=== PATIENT | male | born 1970 | race Caucasian/White ===

== ENCOUNTER 2017-05-19 20:55 | Emergency (ER) | payer OTHER ==
--- NOTE | 2017-05-19 21:12 | PDOC ---
History of Present Illness - General History Source: Patient Exam Limitations: No Limitations - History of Present Illness Initial Comments: 05/19/17 21:35 The patient is a 41 year old male, with significant past medical history of morbid obesity and IDDM, who presents to the emergency room with a sunburn on his upper arms bilaterally, nose, and back. The patient returned from a week- long vacation to [place]. He states that he used sunscreen regularly. He has been using aloe, noxema, and silvadene on the salas with mild relief. He denies fever, chills. PAST MEDICAL HISTORY: Morbidly obese, IDDM PAST SURGICAL HISTORY: no significant history FAMILY HISTORY: no pertinent history SOCIAL HISTORY: Pt lives with family and is employed. MEDICATIONS: reviewed ALLERGIES: As per nursing notes Review of systems General: No fevers or chills, no weakness, no weight loss HEENT: No change in vision. No sore throat, No ear pain CardioVascular: No chest pain or shortness of breath Respiratory:No cough, or wheezing. Gastrointestinal: no nausea, vomiting, diarrhea or constipation, No rectal bleeding Genitourinary: No dysuria, hematuria, or frequency Musculoskeletal: No joint or muscle pain or swelling Neurologic: No headache, vertigo, dizziness or loss of consciousness Psychiatric: nor depression Skin: +sunburn on the nose, upper arms bilaterally, and back. Endocrine: no increased thirst or abnormal weight change Allergic: no skin or latex allergy All other systems reviewed and normal Physical Exam GENERAL: The patient is awake, alert, and fully oriented, in no acute distress. Morbidly obese. HEAD: Normal with no signs of trauma. EYES: Pupils equal, round and reactive to light, extraocular movements intact, sclera anicteric, conjunctiva clear. EXTREMITIES: Normal range of motion, no edema. NEUROLOGICAL: Normal speech, normal gait. PSYCH: Normal mood, normal affect. SKIN: 1st degree sunburn to the shoulders and back with small areas of blistering and some peeling of the skin. It appears that the patient had a small area of 2nd degree sunburn on the nose that already blistered with scabbing formed. There is no evidence of secondary bacterial infection at this time. <Stormy Up - Last Filed: 05/19/17 21:35> - General History Source: Patient Exam Limitations: No Limitations - History of Present Illness Initial Comments: 05/19/17 21:58 A portion of this note was documented by scribe services under my direction. I have reviewed the details of the note, within reason, and agree with the documentation. The case summary and management plan written by me. Assessment and plan: This is a 46-year-old male who comes in complaining of a sunburn. [place] with a sunburn with some mild areas of blistering. There is no evidence of a secondary infection. Patient is otherwise without complaints. Patient given Silvadene and told to follow-up with his primary care doctor <David Escoto I - Last Filed: 05/19/17 21:58> - General Stated Complaint: SUNBURN Time Seen by Provider: 05/19/17 21:03 Past History <Stormy Up - Last Filed: 05/19/17 21:35> - Past Medical History Anemia: No Asthma: No Cancer: No Cardiac Disorders: No CVA: No COPD: No CHF: No Dementia: No Diabetes: Yes GI Disorders: No Disorders: No HTN: Yes Hypercholesterolemia: No Liver Disease: No Seizures: No Thyroid Disease: No - Immunization History Td Vaccination: Yes Immunization Up to Date: No - Psycho/Social/Smoking Cessation Hx Anxiety: No Suicidal Ideation: No Smoking Status: Yes Smoking History: Never smoked Have you smoked in the past 12 months: No Number of Cigarettes Smoked Daily: 0 Hx Alcohol Use: Yes ("ONCE EVERY 2 MONTHS") Drug/Substance Use Hx: No Substance Use Type: None Hx Substance Use Treatment: No <David Escoto I - Last Filed: 05/19/17 21:58> - Past Medical History Allergies/Adverse Reactions: Allergies Allergy/AdvReac Type Severity Reaction Status Date / Time No Known Allergies Allergy Verified 12/03/14 18:24 Home Medications: Ambulatory Orders Cholecalciferol (Vitamin D3) [Vitamin D3] 1,000 unit PO DAILY 12/03/14 Indomethacin 25 mg PO BID PRN 12/03/14 Sitagliptin Phos/Metformin HCl [Janumet 50-1,000 mg Tablet] 1 tab PO BID Atorvastatin Ca [Lipitor] 10 mg PO HS #30 tablet 12/11/14 Oxycodone HCl/Acetaminophen [Percocet 5-325 mg Tablet] 1 combo PO Q4H PRN #60 tablet 12/11/14 Insulin (Levemir) [Levemir Flexpen -] 24 units SQ DAILY 05/19/17 Silver Sulfadiazine [Silvadene] 400 gm TP DAILY #1 cream..g. 05/19/17 *Physical Exam - Vital Signs Last Vital Signs Temp Pulse Resp BP Pulse Ox 98.6 F 93 H 15 149/90 99 05/19/17 20:57 05/19/17 20:57 05/19/17 20:57 05/19/17 20:57 05/19/17 20:57 <Stormy Up - Last Filed: 05/19/17 21:35> *DC/Admit/Observation/Transfer - Attestations Scribe Attestion: 05/19/17 21:36 Documentation prepared by HARRISON Gallegos, acting as medical physics professor for David Escoto MD. <Stormy Up - Last Filed: 05/19/17 21:35> - Discharge Dispostion Admit: No <David Escoto I - Last Filed: 05/19/17 21:58> Diagnosis at time of Disposition: Sunburn, blistering - Discharge Dispostion Disposition: HOME Condition at time of disposition: Good - Prescriptions Prescriptions: Silver Sulfadiazine [Silvadene] 400 gm TP DAILY #1 cream..g. - Referrals Referrals: Lesa Shaikh MD [Primary Care Provider] - - Patient Instructions Printed Discharge Instructions: How to Avoid Sunburn, DI for Sunburn Additional Instructions: Y Silvadene cream to your arm once a day until the skin has done peeling and the blisters have resolved. In addition to that you can also use aloe to the area. Return to the emergency department immediately with ANY new, persistent or worsening symptoms. Continue any medications as previously prescribed by your physician. You should follow up with your primary doctor as soon as possible regarding today's emergency department visit. . Please make sure your doctor reviews the results of your emergency evaluation. Thank you for coming to the Emergency Department today for your care. It was a pleasure to see you today. Please note that your evaluation is INCOMPLETE until you follow-up with your doctor.
[2017-05-19 21:21] VITALS: BP 149/90; PULSE 93; TEMP 98.6; BMI 55.3
== END 2017-05-19 21:35 | disposition home or self-care (01) ==
LOC: FER 20:55
PROC: 2W21X4Z Dressing of Face using Bandage (ICD-10-PCS; principal; 2017-05-19)
PROC: 2W2BX4Z Dressing of Left Upper Arm using Bandage (ICD-10-PCS; 2017-05-19)
DX: L55.9 Sunburn, unspecified (principal); E66.01 Morbid (severe) obesity due to excess calories; E11.9 Type 2 diabetes mellitus without complications; I10 Essential (primary) hypertension
CPT/HCPCS: 99281-25

== ENCOUNTER 2021-05-07 09:37 | Emergency (ER) | payer OTHER ==
[2021-05-07 10:32] VITALS: TEMP 98.1; BMI 27.5
[2021-05-07] MEDS ORDERED: CASIRIVIMAB/IMDEVIMAB 10 ML in SODIUM CHLORIDE 100 ML IVPB ONE (11:29)
[2021-05-07 14:41] LABS: HEMATOCRIT 35.4 % (35.4-49); HEMOGLOBIN 12.1 GM/dL (11.7-16.9); MCH 31.4 pg (25.7-33.7); MCHC 34.1 g/dl (32.0-35.9); MEAN PLT VOLUME 10.8 fl (7.5-11.1); PLATELET COUNT 197 10^3/uL (134-434); RBC 3.85 M/mm3 (4.00-5.60); RDW 14.2 % (11.9-15.9); WHITE BLOOD COUNT 6.2 K/mm3 (4.0-10.0)
[2021-05-07 15:01] VITALS: BP 108/76; PULSE 69
[2021-05-07 15:10] LABS: CALCIUM 8.7 mg/dL (8.5-10.1)
[2021-05-07 15:11] LABS: BLOOD UREA NITROGEN 23.6 mg/dL (7-18)
== END 2021-05-07 14:55 | disposition home or self-care (01) ==
LOC: JCOVINFU 09:37 → JER 09:37 → JCOVINFU 14:55
DX: U07.1 COVID-19 (principal)
CPT/HCPCS: 36415; 80048; 85027; 99284-25; M0240; Q0240

== ENCOUNTER 2021-11-26 18:14 | Emergency (ER) | payer OTHER ==
[2021-11-26 18:28] VITALS: BP 157/92; PULSE 78; TEMP 99.5; BMI 29.4
[2021-11-26] MEDS ORDERED: VANCOMYCIN 1 GM in D5W (PRE-DOCKED) 1,000 MG/250 ML IVPB ONE (19:13)
[2021-11-26] MEDS ORDERED: PIPERACILLIN/TAZOB 3.375 GM 3.375 GM in DEXTROSE 5%-WATER - 50 ML IVPB ONE (19:13)
[2021-11-26] MEDS ORDERED: PIPERACILLIN/TAZOBACTAM 3.375 GM VIAL IVPB ONE (19:32)
[2021-11-26] MEDS ORDERED: VANCOMYCIN 1,000 MG VIAL (RESTRICTED TO ID ONLY) ONE (19:33)
[2021-11-26] MEDS ORDERED: morphine CARPU-JECT 4 MG/1 ML DISP.SYRIN IVPUSH ONE (20:24)
[2021-11-26 20:29] LABS: BILIRUBIN,TOTAL 0.5 mg/dl (0.2-1); CALCIUM 8.8 mg/dl (8.5-10); CREATININE 1.1 mg/dl (0.55-1.3)
[2021-11-26] MEDS ORDERED: morphine SULFATE 4 MG/ML VIAL ONE (20:29)
[2021-11-26 21:15] LABS: BASO % 0.6 % (0-2.0); EOS % 1.6 % (0-4.5); HEMATOCRIT 32.5 % (35.4-49); LYMPH % 23.6 % (8-40); MCH 30.9 pg (25.7-33.7); MCHC 33.9 g/dl (32.0-35.9); MEAN CELL VOLUME 91.3 fl (80-96); MEAN PLT VOLUME 9.2 fl (7.5-11.1); MONO % 5.5 % (3.8-10.2); NEUT % 68.7 % (42.8-82.8); PLATELET COUNT 195 10^3/uL (134-434); RBC 3.57 M/mm3 (4.00-5.60); RDW 13.1 % (11.9-15.9); WHITE BLOOD COUNT 7.7 K/mm3 (4.0-10.0)
== END 2021-11-26 23:43 | disposition home or self-care (01) ==
LOC: FER 18:14
PROC: 3E033GC Introduction of Other Therapeutic Substance into Peripheral Vein, Percutaneous Approach (ICD-10-PCS; principal; 2021-11-26)
DX: J34.0 Abscess, furuncle and carbuncle of nose (principal)
CPT/HCPCS: 36415; 70487-TC; 80053; 85025; 87040; 96365; 96375; 99285-25; Q9967

== ENCOUNTER 2023-01-16 18:30 | Emergency (ER) | payer OTHER ==
[2023-01-16 18:45] VITALS: BP 117/82; PULSE 81; RESP 16; TEMP 97.8; BMI 28.1
[2023-01-16] MEDS ORDERED: LIDOCAINE 5% TOPICAL PATCH TP ONE (19:48)
[2023-01-16] MEDS ORDERED: METHOCARBAMOL 500 MG TABLET PO ONE (19:48)
[2023-01-16] MEDS ORDERED: METHOCARBAMOL 500 MG TABLET ONE (19:49)
[2023-01-16] MEDS ORDERED: LACTULOSE 20 GM/30 ML UDC (FOR ORAL USE ONLY) PO ONE (20:50)
[2023-01-16] MEDS ORDERED: LACTULOSE 20 GM/30 ML UDC (FOR ORAL USE ONLY) ONE (20:51)
[2023-01-16] MEDS ORDERED: POLYETHYLENE GLYCOL (HEALTHYLAX) 3350 17 GM PACKET PO SCH (21:00)
[2023-01-16] MEDS ORDERED: LIDOCAINE PATCH REMOVAL MC SCH (22:00)
[2023-01-17] MEDS ORDERED: ACETAMINOPHEN 1000 MG/100 ML BAG IVPB ONE (03:04)
[2023-01-17] MEDS ORDERED: SODIUM CHLORIDE 0.9% 500 ML INFUS.BAG IV ONE (03:05)
== END 2023-01-16 20:55 | disposition home or self-care (01) ==
LOC: FER 18:30
PROC: 3E033NZ Introduction of Analgesics, Hypnotics, Sedatives into Peripheral Vein, Percutaneous Approach (ICD-10-PCS; principal; 2023-01-16)
DX: S00.83XA Contusion of other part of head, initial encounter (principal); S46.911A Strain of unspecified muscle, fascia and tendon at shoulder and upper arm level, right arm, initial encounter; S39.012A Strain of muscle, fascia and tendon of lower back, initial encounter; W10.8XXA Fall (on) (from) other stairs and steps, initial encounter
CPT/HCPCS: 70450-TC; 70480-TC; 72070-TC-FY; 72100-TC-FY; 73030-TC-RT-FY; 99285-25

== ENCOUNTER 2023-11-25 20:40 | Day surgery (SDC) | payer OTHER ==
[2023-11-25] MEDS ORDERED: FAMOTIDINE 20 MG/50 ML IVPB 20 MG/50 ML MG IVPB ONE (21:12)
[2023-11-25] MEDS ORDERED: ACETAMINOPHEN INJECTION 100 ML IVPB ONE (21:12)
[2023-11-25] MEDS: SODIUM CHLORIDE 1,000 ML IV STA ×2 (21:24→22:44)
[2023-11-25] MEDS: ACETAMINOPHEN 1000 MG/100 ML BAG IVPB ONE (21:25)
[2023-11-25] MEDS: FAMOTIDINE 20 MG/50 ML IVPB 20 MG/50 ML MG IVPB ONE (21:25)
[2023-11-25 21:29] LABS: HEMATOCRIT 33.4 % (35.4-49); HEMOGLOBIN 10.7 G/dL (11.7-16.9); MCH 29.8 pg (25.7-33.7); MCHC 31.9 g/dl (32.0-35.9); MEAN CELL VOLUME 93.6 fl (80-96); MEAN PLT VOLUME 9.5 fl (7.5-11.1); RBC 3.57 10^6/uL (4.00-5.60); RDW 14.7 % (11.9-15.9); WHITE BLOOD COUNT 7.9 10^3/uL (4.0-10.8)
[2023-11-25 21:38] LABS: PLATELET ESTIMATE ADEQUATE
[2023-11-25 21:50] LABS: ALBUMIN 3.3 g/dl (3.4-5.0); BILIRUBIN,TOTAL 0.3 mg/dl (0.2-1); CALCIUM 8.8 mg/dl (8.5-10.1); CREATININE 1.4 mg/dl (0.6-1.3); POTASSIUM 4.4 mmol/L (3.5-5.1); TOT PROT 6.6 g/dl (6.4-8.2)
[2023-11-25] MEDS ORDERED: KETOROLAC TROMETHAMINE 15 MG/ML VIAL ONE (22:41)
[2023-11-25] MEDS: KETOROLAC TROMETHAMINE 30 MG/1 ML VIAL IVPUSH ONE (22:44)
[2023-11-26] MEDS ORDERED: KETOROLAC TROMETHAMINE 15 MG/ML VIAL ONE (00:33)
[2023-11-26] MEDS: KETOROLAC TROMETHAMINE 30 MG/1 ML VIAL IVPUSH ONE (00:40)
[2023-11-26] MEDS ORDERED: PIPERACILLIN/TAZOBACTAM 3.375 GM VIAL IVPB ONE (02:42)
[2023-11-26] MEDS: PIPERACILLIN/TAZOB 3.375 GM 3.375 GM in DEXTROSE 5%-WATER - 50 ML IVPB ONE (02:50)
[2023-11-26] MEDS ORDERED: ACETAMINOPHEN 1000 MG/100 ML BAG IVPB PRN (04:24)
[2023-11-26] MEDS ORDERED: DOCUSATE SODIUM 100 MG CAPSULE (FP) PO PRN (04:30)
[2023-11-26 05:21] VITALS: BMI 28.8
[2023-11-26] MEDS: DEXTROSE 5%-0.45% SALINE 1,000 ML IV SCH (05:41)
[2023-11-26 08:37] LABS: ACTIVATED PTT 31.7 SECONDS (25.2-36.5); INR 1.1 (0.83-1.09); PROTHROMBIN TIME (PATIENT) 12.7 SEC (9.7-13.0)
[2023-11-26] MEDS ORDERED: PIPERACILLIN/TAZOB 3.375 GM 3.375 GM in DEXTROSE 5%-WATER - 50 ML IVPB SCH (09:00)
[2023-11-26] MEDS: PIPERACILLIN/TAZOB 3.375 GM 3.375 GM in DEXTROSE 5%-WATER - 50 ML IVPB SCH (09:31)
[2023-11-26 09:40] LABS: ALBUMIN 3.2 g/dl (3.4-5.0); BILIRUBIN,TOTAL 0.5 mg/dl (0.2-1); CALCIUM 8.5 mg/dl (8.5-10.1); CREATININE 1.2 mg/dl (0.6-1.3); MAGNESIUM 1.6 mg/dL (1.8-2.4); PHOSPHOROUS 3.3 (2.5-4.9); POTASSIUM 4.6 mmol/L (3.5-5.1); TOT PROT 6.2 g/dl (6.4-8.2)
[2023-11-26 10:23] LABS: BASO % 0.4 % (0-2.0); EOS % 0.5 % (0-4.5); HEMOGLOBIN 10.5 GM/dL (11.7-16.9); LYMPH % 7.7 % (8-40); MCH 29.4 pg (25.7-33.7); MCHC 31.8 g/dl (32.0-35.9); MEAN CELL VOLUME 92.6 fl (80-96); MEAN PLT VOLUME 10.2 fl (7.5-11.1); MONO % 4.6 % (3.8-10.2); NEUT % 86.8 % (42.8-82.8); PLATELET COUNT 142 10^3/uL (134-434); RBC 3.57 M/mm3 (4.00-5.60); RDW 14.9 % (11.9-15.9); WHITE BLOOD COUNT 7.4 K/mm3 (4.0-10.0)
[2023-11-26] MEDS: CHOLECALCIFEROL (VIT D3) 5000 UNITS (125 MCG) CAP PO SCH (11:00)
[2023-11-26] MEDS: PANTOPRAZOLE 40 MG TABLET PO SCH (11:00)
[2023-11-26] MEDS: ACETAMINOPHEN 1000 MG/100 ML BAG IVPB PRN (15:04)
[2023-11-26] MEDS: SODIUM CHLORIDE 500 ML IV STA (22:28)
[2023-11-27] MEDS ORDERED: PIPERACILLIN/TAZOBACTAM 3.375 GM VIAL IVPB ONE (01:52)
[2023-11-27] MEDS ORDERED: BUPIVACAINE HCL/PF 0.25% (2.5MG/ML) 10 ML VIAL ONE (07:44)
[2023-11-27] MEDS ORDERED: SUCCINYLCHOLINE CHLORIDE 200 MG/10 ML SYRINGE ONE ×2 (07:45→08:51)
[2023-11-27] MEDS ORDERED: PROPOFOL 40 ML ONE (07:46)
[2023-11-27] MEDS ORDERED: ONDANSETRON 4 MG/2 ML VIAL IVPUSH PRN ×2 (08:12→11:31)
[2023-11-27] MEDS ORDERED: FENTANYL CITRATE/PF 50 MCG/ML VIAL ONE (08:50)
[2023-11-27] MEDS ORDERED: MIDAZOLAM HCL 2 MG/2 ML SINGLE DOSE VIAL ONE (08:50)
[2023-11-27] MEDS ORDERED: cefOXitin SODIUM 2 GM VIAL (RESTRICTED TO ID) IVPB ONE (09:09)
[2023-11-27] MEDS: cefOXitin SODIUM 2 GM VIAL (RESTRICTED TO ID) IVPB ONE (09:15)
[2023-11-27 09:17] LABS: BASO % 0.2 % (0-2.0); EOS % 0.3 % (0-4.5); HEMATOCRIT 31.2 % (35.4-49); HEMOGLOBIN 9.9 GM/dL (11.7-16.9); LYMPH % 6.6 % (8-40); MCH 29.1 pg (25.7-33.7); MCHC 31.8 g/dl (32.0-35.9); MEAN CELL VOLUME 91.7 fl (80-96); NEUT % 86.9 % (42.8-82.8); PLATELET COUNT 121 10^3/uL (134-434); RDW 14.5 % (11.9-15.9); WHITE BLOOD COUNT 11.6 K/mm3 (4.0-10.0)
[2023-11-27] MEDS: BUPIVACAINE HCL/PF 0.25% (2.5MG/ML) 10 ML VIAL IJ ONE (09:26)
[2023-11-27] MEDS ORDERED: ACETAMINOPHEN INJECTION 100 ML IVPB ONE (10:09)
[2023-11-27] MEDS ORDERED: SUGAMMADEX SODIUM 200 MG/2 ML VIAL ONE (10:50)
[2023-11-27] MEDS ORDERED: LACTATED RINGERS SOLUTION 1,000 ML IV SCH (11:15)
[2023-11-27] MEDS ORDERED: oxyCODONE HCL 5 MG TABLET PO PRN ×3 (11:17→11:27)
[2023-11-27] MEDS ORDERED: DOCUSATE SODIUM 100 MG CAPSULE (FP) PO PRN (11:31)
[2023-11-27 11:32] LABS: ALBUMIN 1.9 g/dl (3.4-5.0); BILIRUBIN,TOTAL 0.4 mg/dL (0.2-1); BLOOD UREA NITROGEN 29.3 mg/dL (7-18); CALCIUM 7.6 mg/dL (8.5-10.1); CREATININE 1.7 mg/dL (0.55-1.3); POTASSIUM 4.2 mmol/L (3.5-5.1); TOT PROT 5.5 g/dl (6.4-8.2)
[2023-11-27] MEDS: LACTATED RINGERS SOLUTION 1,000 ML IV SCH ×2 (12:05→14:45)
[2023-11-27 14:12] VITALS: RESP 18
[2023-11-27] MEDS: PIPERACILLIN/TAZOB 3.375 GM 3.375 GM in DEXTROSE 5%-WATER - 50 ML IVPB SCH (16:42)
[2023-11-27] MEDS ORDERED: ACETAMINOPHEN 500 MG TABLET (FP) PO SCH (17:00)
[2023-11-27] MEDS: ACETAMINOPHEN 500 MG TABLET (FP) PO SCH (17:14)
[2023-11-27] MEDS: AMOX TR/POT CLAV 875MG/125MG TABLETS (FP) PO ONE (17:15)
[2023-11-27] MEDS: oxyCODONE HCL 5 MG TABLET PO PRN (17:15)
[2023-11-27] MEDS: AMOX TR/POT CLAV 875MG/125MG TABLETS (FP) PO SCH (17:56)
[2023-11-27] MEDS ORDERED: KETOROLAC TROMETHAMINE 15 MG/ML VIAL IVPUSH PRN ×2 (18:00)
[2023-11-27 18:08] VITALS: BP 120/56; PULSE 68; TEMP 98.3
[2023-11-28] MEDS ORDERED: CHOLECALCIFEROL (VIT D3) 5000 UNITS (125 MCG) CAP PO SCH (10:00)
[2023-11-28] MEDS ORDERED: PANTOPRAZOLE 40 MG TABLET PO SCH (10:00)
== END 2023-11-27 18:39 | disposition home or self-care (01) ==
LOC: FER 20:40 → UNDOADMOB 11-26 04:38 → FM/S 11-26 04:38 → J8W 11-26 21:09 → JASUSAT 11-27 11:08 → J8W 11-27 11:47 → JASUSAT 11-27 18:39
PROVIDERS: ATTEND Internal Medicine
PROC: 3E030NZ Introduction of Analgesics, Hypnotics, Sedatives into Peripheral Vein, Open Approach (ICD-10-PCS; 2023-11-27)
PROC: 3E0303Z Introduction of Anti-inflammatory into Peripheral Vein, Open Approach (ICD-10-PCS; 2023-11-27)
PROC: 3E0337Z Introduction of Electrolytic and Water Balance Substance into Peripheral Vein, Percutaneous Approach (ICD-10-PCS; 2023-11-27)
PROC: 3E033GC Introduction of Other Therapeutic Substance into Peripheral Vein, Percutaneous Approach (ICD-10-PCS; principal; 2023-11-27 08:00)
DX: R10.817 Generalized abdominal tenderness (principal); R11.0 Nausea; K81.0 Acute cholecystitis
CPT/HCPCS: 36415; 74176-TC; 76705-TC; 80053; 81003; 81015; 83735; 84100; 85025; 85027; 85610; 85730; 86850; 86900; 86901; 88304-TC; 94760; 99285-25; J0131

== ENCOUNTER 2023-12-05 10:45 | Inpatient (IN) | payer OTHER ==
[2023-12-05] MEDS: SODIUM CHLORIDE 0.9% 500 ML INFUS.BAG IV ONE ×3 (11:57→15:57)
[2023-12-05 11:58] LABS: VENOUS BASE EXCESS -5.1 mmol/L (-2-2); VENOUS O2 SATURATION 53.6 % (70-80); VENOUS PCO2 36.4 mmHg (38-52); VENOUS PH 7.355 (7.310-7.410)
[2023-12-05 12:06] LABS: HEMATOCRIT 30.6 % (35.4-49); HEMOGLOBIN 10.3 GM/dL (11.7-16.9); MCH 30.3 pg (25.7-33.7); MCHC 33.8 g/dl (32.0-35.9); MEAN CELL VOLUME 89.5 fl (80-96); MEAN PLT VOLUME 9.9 fl (7.5-11.1); PLATELET COUNT 221 10^3/uL (134-434); RBC 3.42 M/mm3 (4.00-5.60); RDW 14.8 % (11.9-15.9)
[2023-12-05 12:09] LABS: INR 1.35 (0.83-1.09); PROTHROMBIN TIME (PATIENT) 15.6 SEC (9.7-13.0)
[2023-12-05 12:12] LABS: ACTIVATED PTT 26.1 SECONDS (25.2-36.5)
[2023-12-05] MEDS ORDERED: ACETAMINOPHEN INJECTION 100 ML IVPB ONE (12:26)
[2023-12-05] MEDS ORDERED: PIPERACILLIN/TAZOB 3.375 GM 3.375 GM/50 ML BAG IVPB ONE (12:27)
[2023-12-05] MEDS ORDERED: VANCOMYCIN 1 GRAM (PRE-DOCKED) 1,000 MG/250 ML BAG IVPB ONE (12:27)
[2023-12-05 12:28] LABS: LACTIC ACID 3.2 mmol/L (0.4-2.0)
[2023-12-05 12:29] LABS: POTASSIUM 4.1 mmol/L (3.5-5.1)
[2023-12-05 12:32] LABS: BLOOD UREA NITROGEN 15.6 mg/dL (7-18); CALCIUM 7.7 mg/dL (8.5-10.1)
[2023-12-05 12:35] LABS: CREATININE 1.3 mg/dL (0.55-1.3)
[2023-12-05] MEDS: ACETAMINOPHEN 1000 MG/100 ML BAG IVPB ONE (12:35)
[2023-12-05 12:37] LABS: BILIRUBIN,TOTAL 1.5 mg/dL (0.2-1); TOT PROT 6.4 g/dl (6.4-8.2)
[2023-12-05] MEDS: PIPERACILLIN/TAZOB 3.375 GM 3.375 GM in DEXTROSE 5%-WATER - 50 ML IVPB ONE (12:43)
[2023-12-05 12:58] LABS: ANISOCYTOSIS 0; HELMET CELLS 0; HOWELL-JOLLY BODIES 0; MACROCYTOSIS 0; OVALOCYTE 0; ROULEAU 0; SICKELED CELLS 0; TARGET CELLS 0; TEAR DROP CELLS 0; TOXIC GRANULATION 0
[2023-12-05] MEDS: VANCOMYCIN 1,000 MG in DEXTROSE 5%-WATER - 250 ML IVPB ONE (13:30)
[2023-12-05] MEDS ORDERED: NOREPINEPHRINE 0.9 % NACL 8 MG/250 ML BAG IVPB ONE (15:53)
[2023-12-05] MEDS: NOREPINEPHRINE 0.9 % NACL 8 MG/250 ML BAG IVPB SCH (17:34)
[2023-12-05] MEDS ORDERED: PIPERACILLIN/TAZOB 3.375 GM 3.375 GM in DEXTROSE 5%-WATER - 50 ML IVPB SCH (18:00)
[2023-12-05] MEDS ORDERED: ACETAMINOPHEN 1000 MG/100 ML BAG IVPB PRN (18:05)
[2023-12-05 18:06] LABS: LACTIC ACID 3.1 mmol/L (0.4-2.0)
[2023-12-05 19:01] LABS: BILIRUBIN,DIRECT 1.2 mg/dL (0.0-0.2)
[2023-12-05] MEDS: LACTATED RINGERS SOLUTION 1,000 ML/1,000 ML INFUS.BAG IV STA (19:21)
[2023-12-05] MEDS: PIPERACILLIN/TAZOB 3.375 GM 3.375 GM in DEXTROSE 5%-WATER - 50 ML IVPB SCH (19:22)
[2023-12-05] MEDS ORDERED: LACTATED RINGERS SOLUTION 1,000 ML/1,000 ML INFUS.BAG IV SCH (20:00)
[2023-12-05] MEDS ORDERED: fentaNYL CITRATE 250 MCG/5 ML VIAL ONE (21:13)
[2023-12-05] MEDS: LACTATED RINGERS SOLUTION 1,000 ML/1,000 ML INFUS.BAG IV SCH (21:15)
[2023-12-05] MEDS: MUPIROCIN 2% TOPICAL OINTMENT FOR DECOLONIZATION NS SCH (22:14)
[2023-12-05] MEDS: FENTANYL CITRATE/PF 50 MCG/ML VIAL IVPUSH ONE (22:14)
[2023-12-05] MEDS: CHLORHEXIDINE GLUCONATE 4% CLEANSER FOR DECOLONIZATION TP SCH (22:14)
[2023-12-05] MEDS: NOREPINEPHRINE BITARTRATE/D5W 8 MG/250 ML BAG IVPB SCH (22:15)
[2023-12-05 23:08] LABS: CHLORIDE 111 mmol/L (98-107); POTASSIUM 3.5 mmol/L (3.5-5.1); SODIUM 142 mmol/L (136-145)
[2023-12-05 23:11] LABS: ANION GAP 10 mmol/L (4-13); BLOOD UREA NITROGEN 21.3 mg/dL (7-18); CO2 20 mmol/L (21-32); GLUCOSE,RANDOM 90 mg/dL (74-106)
[2023-12-05 23:14] LABS: CREATININE 1.7 mg/dL (0.55-1.3); PHOSPHOROUS 2.6 mg/dL (2.5-4.9); SGOT/AST 408 U/L (15-37); SGPT/ALT 285 U/L (13-61)
[2023-12-05 23:16] LABS: BILIRUBIN,TOTAL 2.8 mg/dL (0.2-1); TOT PROT 4.9 g/dl (6.4-8.2)
[2023-12-05 23:17] LABS: LACTIC ACID 2.7 mmol/L (0.4-2.0)
[2023-12-05 23:23] LABS: ALBUMIN 1.5 g/dl (3.4-5.0); ALK PHOS 373 U/L (45-117); CALCIUM 6.6 mg/dL (8.5-10.1); MAGNESIUM 0.9 mg/dL (1.8-2.4)
[2023-12-05] MEDS: KCL 10 MEQ IVPB 10 MEQ/100 ML INFUS.BAG IVPB SCH (23:44)
[2023-12-05] MEDS: CALCIUM GLUC IN NACL, ISO-OSM 1 GM/50 ML BAG IVPB ONE (23:44)
[2023-12-05] MEDS: MAGNESIUM SULFATE IN WATER 2 GM/50 ML IVPB IVPB ONE (23:44)
[2023-12-06] MEDS: MAGNESIUM 1GM/D5W - 1 GM/100 ML IVPB IVPB ONE (00:33)
[2023-12-06] MEDS: CALCIUM GLUC IN NACL, ISO-OSM 1 GM/50 ML BAG IVPB ONE (00:33)
[2023-12-06] MEDS: ALBUMIN HUMAN 5% 250 ML IV SOLUTION IV ONE (01:30)
[2023-12-06 07:31] LABS: INR 1.53 (0.83-1.09); PROTHROMBIN TIME (PATIENT) 17.7 SEC (9.7-13.0)
[2023-12-06 07:34] LABS: ACTIVATED PTT 30.3 SECONDS (25.2-36.5)
[2023-12-06 07:37] LABS: HEMATOCRIT 28.4 % (35.4-49); HEMOGLOBIN 9.2 GM/dL (11.7-16.9); MCHC 32.3 g/dl (32.0-35.9); MEAN PLT VOLUME 10.6 fl (7.5-11.1); PLATELET COUNT 215 10^3/uL (134-434); RBC 3.15 M/mm3 (4.00-5.60); RDW 14.6 % (11.9-15.9)
[2023-12-06 07:48] LABS: POTASSIUM 4.2 mmol/L (3.5-5.1)
[2023-12-06 07:54] LABS: CALCIUM 7.5 mg/dL (8.5-10.1)
[2023-12-06 07:55] LABS: BLOOD UREA NITROGEN 23.8 mg/dL (7-18); MAGNESIUM 1.9 mg/dL (1.8-2.4)
[2023-12-06 07:57] LABS: PHOSPHOROUS 3.7 mg/dL (2.5-4.9)
[2023-12-06 07:58] LABS: BILIRUBIN,TOTAL 3.3 mg/dL (0.2-1); TOT PROT 6.2 g/dl (6.4-8.2)
[2023-12-06 08:05] LABS: ALBUMIN 2.2 g/dl (3.4-5.0)
[2023-12-06 08:19] LABS: HEMATOCRIT 28.1 % (35.4-49); MCH 28.7 pg (25.7-33.7); MCHC 31.9 g/dl (32.0-35.9); MEAN CELL VOLUME 90.2 fl (80-96); MEAN PLT VOLUME 10.3 fl (7.5-11.1); PLATELET COUNT 202 10^3/uL (134-434); RBC 3.12 M/mm3 (4.00-5.60); RDW 14.9 % (11.9-15.9)
[2023-12-06 08:25] LABS: WHITE BLOOD COUNT 53.6 K/mm3 (4.0-10.0)
[2023-12-06 09:32] LABS: ANISOCYTOSIS 0; HELMET CELLS 0; HOWELL-JOLLY BODIES 0; MACROCYTOSIS 0; OVALOCYTE 0; ROULEAU 0; SICKELED CELLS 0; TARGET CELLS 0; TEAR DROP CELLS 0; TOXIC GRANULATION 0
[2023-12-06 10:20] LABS: ANISOCYTOSIS 0; HELMET CELLS 0; HOWELL-JOLLY BODIES 0; MACROCYTOSIS 0; OVALOCYTE 0; ROULEAU 0; SICKELED CELLS 0; TARGET CELLS 0; TEAR DROP CELLS 0; TOXIC GRANULATION 0
[2023-12-06] MEDS ORDERED: ePHEDrine SULFATE 50 MG/1 ML AMPULE ONE (11:03)
[2023-12-06] MEDS ORDERED: MIDAZOLAM HCL 2 MG/2 ML SINGLE DOSE VIAL ONE ×2 (11:03→13:26)
[2023-12-06] MEDS ORDERED: FENTANYL CITRATE/PF 50 MCG/ML VIAL ONE ×2 (11:06→13:38)
[2023-12-06] MEDS: PHYTONADIONE 10 MG/1 ML AMP IVPB ONE ×2 (13:12→17:30)
[2023-12-06] MEDS: MEROPENEM 1 GM in DEXTROSE 5%-WATER 100 ML IVPB ONE (15:20)
[2023-12-06] MEDS: DEXTROSE 5%-LACTATED RINGERS 1,000 ML IV SCH (17:21)
[2023-12-06 17:26] LABS: HEMATOCRIT 26.1 % (35.4-49); HEMOGLOBIN 8.5 GM/dL (11.7-16.9); MCH 28.9 pg (25.7-33.7); MCHC 32.7 g/dl (32.0-35.9); MEAN CELL VOLUME 88.6 fl (80-96); MEAN PLT VOLUME 10.7 fl (7.5-11.1); PLATELET COUNT 128 10^3/uL (134-434); RBC 2.94 M/mm3 (4.00-5.60); RDW 14.8 % (11.9-15.9); WHITE BLOOD COUNT 28.1 K/mm3 (4.0-10.0)
[2023-12-06 17:35] LABS: INR 1.86 (0.83-1.09); PROTHROMBIN TIME (PATIENT) 21.4 SEC (9.7-13.0)
[2023-12-06 17:37] LABS: ACTIVATED PTT 33.1 SECONDS (25.2-36.5)
[2023-12-06] MEDS: MEROPENEM 500 MG in DEXTROSE 5%-WATER 100 ML IVPB SCH (18:30)
[2023-12-06 18:59] LABS: POTASSIUM 4.4 mmol/L (3.5-5.1)
[2023-12-06 19:01] LABS: CALCIUM 7.3 mg/dL (8.5-10.1)
[2023-12-06 19:02] LABS: BLOOD UREA NITROGEN 27.2 mg/dL (7-18)
[2023-12-06 19:04] LABS: CREATININE 1.9 mg/dL (0.55-1.3)
[2023-12-06 19:06] LABS: BILIRUBIN,TOTAL 3.9 mg/dL (0.2-1)
[2023-12-06 19:12] LABS: ALBUMIN 1.7 g/dl (3.4-5.0)
[2023-12-06 21:53] LABS: HEMATOCRIT 27.2 % (35.4-49); HEMOGLOBIN 8.8 GM/dL (11.7-16.9); MCH 28.6 pg (25.7-33.7); MCHC 32.2 g/dl (32.0-35.9); MEAN CELL VOLUME 88.8 fl (80-96); MEAN PLT VOLUME 10.7 fl (7.5-11.1); PLATELET COUNT 120 10^3/uL (134-434); RBC 3.07 M/mm3 (4.00-5.60); RDW 14.9 % (11.9-15.9)
[2023-12-06 21:57] LABS: WHITE BLOOD COUNT 34.1 K/mm3 (4.0-10.0)
[2023-12-06 21:59] LABS: INR 1.8 (0.83-1.09); PROTHROMBIN TIME (PATIENT) 20.8 SEC (9.7-13.0)
[2023-12-06] MEDS: PIPERACILLIN/TAZOB 3.375 GM 3.375 GM in DEXTROSE 5%-WATER - 50 ML IVPB SCH (22:29)
[2023-12-06 22:46] LABS: ANISOCYTOSIS 0; MACROCYTOSIS 0
[2023-12-07 06:35] LABS: HEMOGLOBIN 8.1 GM/dL (11.7-16.9); MCHC 32.3 g/dl (32.0-35.9); MEAN CELL VOLUME 89.7 fl (80-96); MEAN PLT VOLUME 11.3 fl (7.5-11.1); PLATELET COUNT 109 10^3/uL (134-434); RBC 2.79 M/mm3 (4.00-5.60); RDW 14.9 % (11.9-15.9); WHITE BLOOD COUNT 26.2 K/mm3 (4.0-10.0)
[2023-12-07 06:38] LABS: POTASSIUM 4.3 mmol/L (3.5-5.1)
[2023-12-07 06:40] LABS: ALBUMIN 1.4 g/dl (3.4-5.0); BLOOD UREA NITROGEN 28.6 mg/dL (7-18); CALCIUM 7.4 mg/dL (8.5-10.1)
[2023-12-07 06:43] LABS: BILIRUBIN,DIRECT 1.4 mg/dL (0.0-0.2); CREATININE 1.7 mg/dL (0.55-1.3); PHOSPHOROUS 3.3 mg/dL (2.5-4.9)
[2023-12-07 06:45] LABS: TOT PROT 4.9 g/dl (6.4-8.2)
[2023-12-07 06:48] LABS: BILIRUBIN,TOTAL 1.6 mg/dL (0.2-1); INR 1.6 (0.83-1.09); PROTHROMBIN TIME (PATIENT) 18.5 SEC (9.7-13.0)
[2023-12-07 06:50] LABS: ACTIVATED PTT 32.4 SECONDS (25.2-36.5)
[2023-12-07 09:40] LABS: ANISOCYTOSIS 0; MACROCYTOSIS 0; TARGET CELLS 1+
[2023-12-07] MEDS: CEFTRIAXONE 2 GM in DEXTROSE 5%-WATER 100 ML IVPB SCH (12:02)
[2023-12-07] MEDS: PANTOPRAZOLE SODIUM 40 MG VIAL IVPUSH ONE (18:32)
[2023-12-07] MEDS: HEPARIN NA (PORCINE) 5,000 UNITS/ML 1ML VIAL SQ SCH (21:45)
[2023-12-08 05:39] LABS: HEMATOCRIT 20.4 % (35.4-49); MCH 29.5 pg (25.7-33.7); MCHC 33.2 g/dl (32.0-35.9); MEAN CELL VOLUME 89.1 fl (80-96); PLATELET COUNT 97 10^3/uL (134-434); RBC 2.29 M/mm3 (4.00-5.60); RDW 14.7 % (11.9-15.9); WHITE BLOOD COUNT 10.6 K/mm3 (4.0-10.0)
[2023-12-08 05:59] LABS: POTASSIUM 3.9 mmol/L (3.5-5.1)
[2023-12-08 06:01] LABS: CALCIUM 7.2 mg/dL (8.5-10.1)
[2023-12-08 06:02] LABS: ALBUMIN 1.3 g/dl (3.4-5.0); BLOOD UREA NITROGEN 36.2 mg/dL (7-18)
[2023-12-08 06:05] LABS: CREATININE 1.8 mg/dL (0.55-1.3); PHOSPHOROUS 2.3 mg/dL (2.5-4.9)
[2023-12-08 06:07] LABS: INR 1.22 (0.83-1.09); PROTHROMBIN TIME (PATIENT) 14.1 SEC (9.7-13.0); TOT PROT 4.4 g/dl (6.4-8.2)
[2023-12-08 06:08] LABS: HEMOGLOBIN 6.8 GM/dL (11.7-16.9)
[2023-12-08 06:11] LABS: BILIRUBIN,TOTAL 0.7 mg/dL (0.2-1)
[2023-12-08 06:41] LABS: HEMATOCRIT 20.4 % (35.4-49); MCH 29.4 pg (25.7-33.7); MCHC 32.8 g/dl (32.0-35.9); MEAN CELL VOLUME 89.8 fl (80-96); MEAN PLT VOLUME 10.7 fl (7.5-11.1); PLATELET COUNT 98 10^3/uL (134-434); RBC 2.28 M/mm3 (4.00-5.60); RDW 14.5 % (11.9-15.9); WHITE BLOOD COUNT 10.2 K/mm3 (4.0-10.0)
[2023-12-08 07:07] LABS: HEMOGLOBIN 6.7 GM/dL (11.7-16.9)
[2023-12-08] MEDS ORDERED: SODIUM BICARBONATE 8.4% 50 MEQ/50 ML DISP.SYRIN ONE (08:12)
[2023-12-08] MEDS: PANTOPRAZOLE SODIUM 40 MG VIAL IVPUSH SCH (09:26)
[2023-12-08] MEDS: PANTOPRAZOLE 40 MG TABLET PO SCH (10:21)
[2023-12-08 12:43] LABS: HEMATOCRIT 23.5 % (35.4-49); HEMOGLOBIN 7.6 GM/dL (11.7-16.9); MCH 28.6 pg (25.7-33.7); MCHC 32.3 g/dl (32.0-35.9); MEAN CELL VOLUME 88.8 fl (80-96); MEAN PLT VOLUME 10.7 fl (7.5-11.1); PLATELET COUNT 111 10^3/uL (134-434); RBC 2.65 M/mm3 (4.00-5.60); RDW 14.5 % (11.9-15.9); WHITE BLOOD COUNT 12.9 K/mm3 (4.0-10.0)
[2023-12-09 06:42] LABS: HEMOGLOBIN 7.9 GM/dL (11.7-16.9); MCH 29.2 pg (25.7-33.7); MEAN CELL VOLUME 88.6 fl (80-96); MEAN PLT VOLUME 10.8 fl (7.5-11.1); PLATELET COUNT 116 10^3/uL (134-434); RBC 2.71 M/mm3 (4.00-5.60); RDW 14.6 % (11.9-15.9); WHITE BLOOD COUNT 7.8 K/mm3 (4.0-10.0)
[2023-12-09 06:57] LABS: POTASSIUM 4.1 mmol/L (3.5-5.1)
[2023-12-09 07:03] LABS: BLOOD UREA NITROGEN 32.3 mg/dL (7-18); CALCIUM 7.5 mg/dL (8.5-10.1)
[2023-12-09 07:04] LABS: ALBUMIN 1.4 g/dl (3.4-5.0)
[2023-12-09 07:07] LABS: CREATININE 1.4 mg/dL (0.55-1.3); TOT PROT 5.1 g/dl (6.4-8.2)
[2023-12-09 07:10] LABS: BILIRUBIN,TOTAL 0.6 mg/dL (0.2-1)
[2023-12-09] MEDS: LACTATED RINGERS SOLUTION 1,000 ML/1,000 ML INFUS.BAG IV SCH (12:20)
[2023-12-09] MEDS: valACYclovir HCL 500 MG TABLET (FP) PO SCH (12:20)
[2023-12-09] MEDS: TAMSULOSIN HCL 0.4 MG CAP PO SCH (12:20)
[2023-12-09] MEDS: DOXAZOSIN MESYLATE 1 MG TABLET PO ONE (12:20)
[2023-12-09] MEDS: POTASSIUM PHOSPHATE 15 MM in DEXTROSE 5%-WATER - 250 ML IVPB ONE (18:13)
[2023-12-10] MEDS: TAMSULOSIN HCL 0.4 MG CAP PO ONE (08:01)
[2023-12-10] MEDS: NAPH,MB-DB/K PH,MBDB POWDER PACKET PO ONE (09:23)
[2023-12-10] MEDS: TAMSULOSIN HCL 0.4 MG CAP PO SCH (09:23)
[2023-12-10] MEDS ORDERED: TAMSULOSIN HCL 0.4 MG CAP PO SCH ×2 (10:00)
[2023-12-11 10:09] LABS: HEMATOCRIT 25.1 % (35.4-49); HEMOGLOBIN 8.2 GM/dL (11.7-16.9); MCH 29.1 pg (25.7-33.7); MCHC 32.6 g/dl (32.0-35.9); MEAN CELL VOLUME 89.4 fl (80-96); MEAN PLT VOLUME 10.2 fl (7.5-11.1); PLATELET COUNT 148 10^3/uL (134-434); RBC 2.81 M/mm3 (4.00-5.60); RDW 14.7 % (11.9-15.9); WHITE BLOOD COUNT 5.3 K/mm3 (4.0-10.0)
[2023-12-11] MEDS: FUROSEMIDE 40 MG/4 ML INJECTABLE VIAL IVPUSH ONE (10:10)
[2023-12-11] MEDS: CEFTRIAXONE 2 GM in DEXTROSE 5%-WATER 100 ML IVPB SCH (10:11)
[2023-12-11] MEDS: PANTOPRAZOLE 40 MG TABLET PO SCH (10:12)
[2023-12-11] MEDS: LOPERAMIDE HCL 2 MG CAPSULE PO PRN (10:19)
[2023-12-11 10:30] LABS: POTASSIUM 4.4 mmol/L (3.5-5.1)
[2023-12-11 10:33] LABS: ALBUMIN 1.6 g/dl (3.4-5.0)
[2023-12-11 10:34] LABS: BLOOD UREA NITROGEN 18.5 mg/dL (7-18); CALCIUM 7.9 mg/dL (8.5-10.1)
[2023-12-11 10:35] LABS: MAGNESIUM 1.9 mg/dL (1.8-2.4)
[2023-12-11 10:36] LABS: CREATININE 1.1 mg/dL (0.55-1.3); PHOSPHOROUS 2.1 mg/dL (2.5-4.9)
[2023-12-11 10:37] LABS: BILIRUBIN,TOTAL 0.5 mg/dL (0.2-1)
[2023-12-11 10:38] LABS: TOT PROT 5.4 g/dl (6.4-8.2)
[2023-12-12 07:53] LABS: HEMATOCRIT 24.8 % (35.4-49); HEMOGLOBIN 8.3 GM/dL (11.7-16.9); MCH 29.7 pg (25.7-33.7); MCHC 33.2 g/dl (32.0-35.9); MEAN CELL VOLUME 89.4 fl (80-96); MEAN PLT VOLUME 10.6 fl (7.5-11.1); PLATELET COUNT 157 10^3/uL (134-434); RBC 2.78 M/mm3 (4.00-5.60); WHITE BLOOD COUNT 5.5 K/mm3 (4.0-10.0)
[2023-12-12 07:54] LABS: HEMATOCRIT 25.1 % (35.4-49); HEMOGLOBIN 8.1 GM/dL (11.7-16.9); MCH 29.3 pg (25.7-33.7); MCHC 32.5 g/dl (32.0-35.9); MEAN CELL VOLUME 90.2 fl (80-96); MEAN PLT VOLUME 10.5 fl (7.5-11.1); PLATELET COUNT 158 10^3/uL (134-434); RBC 2.78 M/mm3 (4.00-5.60); RDW 14.2 % (11.9-15.9); WHITE BLOOD COUNT 5.8 K/mm3 (4.0-10.0)
[2023-12-12 08:16] LABS: POTASSIUM 5.2 mmol/L (3.5-5.1)
[2023-12-12 08:27] LABS: ALBUMIN 1.6 g/dl (3.4-5.0); BLOOD UREA NITROGEN 16.4 mg/dL (7-18); CALCIUM 7.9 mg/dL (8.5-10.1); MAGNESIUM 1.8 mg/dL (1.8-2.4)
[2023-12-12 08:29] LABS: BILIRUBIN,TOTAL 0.4 mg/dL (0.2-1)
[2023-12-12 08:31] LABS: BILIRUBIN,DIRECT 0.3 mg/dL (0.0-0.2); BILIRUBIN,TOTAL 0.5 mg/dL (0.2-1); PHOSPHOROUS 2.7 mg/dL (2.5-4.9); TOT PROT 5.7 g/dl (6.4-8.2)
[2023-12-12 08:32] LABS: TOT PROT 5.6 g/dl (6.4-8.2)
[2023-12-12 08:42] LABS: ANISOCYTOSIS 1+; MACROCYTOSIS 0
[2023-12-12] MEDS: SODIUM ZIRCONIUM CYCLOSILICATE (LOKELMA) 5 GM PACKET PO SCH ×2 (16:00→16:07)
[2023-12-12] MEDS ORDERED: METOPROLOL TARTRATE 5 MG/5 ML VIAL ONE (16:57)
[2023-12-12] MEDS: FUROSEMIDE 40 MG/4 ML INJECTABLE VIAL IVPUSH ONE (17:05)
[2023-12-12] MEDS: METOPROLOL TARTRATE 5 MG/5 ML VIAL IVPUSH ONE (17:10)
[2023-12-12] MEDS: METOPROLOL TARTRATE 25 MG TABLET (FP) PO ONE ×2 (18:15→18:16)
[2023-12-13 07:34] LABS: HEMATOCRIT 26.3 % (35.4-49); HEMOGLOBIN 8.5 GM/dL (11.7-16.9); MCH 29.3 pg (25.7-33.7); MCHC 32.3 g/dl (32.0-35.9); MEAN CELL VOLUME 90.5 fl (80-96); MEAN PLT VOLUME 10.6 fl (7.5-11.1); PLATELET COUNT 187 10^3/uL (134-434); RDW 14.7 % (11.9-15.9); WHITE BLOOD COUNT 7.6 K/mm3 (4.0-10.0)
[2023-12-13 07:47] LABS: POTASSIUM 4.9 mmol/L (3.5-5.1)
[2023-12-13 07:52] LABS: ALBUMIN 1.7 g/dl (3.4-5.0); CALCIUM 8.2 mg/dL (8.5-10.1); MAGNESIUM 1.8 mg/dL (1.8-2.4)
[2023-12-13 07:55] LABS: BILIRUBIN,DIRECT 0.3 mg/dL (0.0-0.2)
[2023-12-13 07:56] LABS: PHOSPHOROUS 2.8 mg/dL (2.5-4.9)
[2023-12-13 07:57] LABS: BILIRUBIN,TOTAL 0.3 mg/dL (0.2-1); TOT PROT 5.7 g/dl (6.4-8.2)
[2023-12-14 07:36] LABS: HEMATOCRIT 26.7 % (35.4-49); HEMOGLOBIN 8.7 GM/dL (11.7-16.9); MCH 29.4 pg (25.7-33.7); MCHC 32.6 g/dl (32.0-35.9); MEAN CELL VOLUME 90.1 fl (80-96); MEAN PLT VOLUME 10.2 fl (7.5-11.1); PLATELET COUNT 195 10^3/uL (134-434); RBC 2.97 M/mm3 (4.00-5.60); RDW 14.6 % (11.9-15.9); WHITE BLOOD COUNT 5.5 K/mm3 (4.0-10.0)
[2023-12-14 07:50] LABS: POTASSIUM 4.7 mmol/L (3.5-5.1)
[2023-12-14 07:54] LABS: ALBUMIN 1.7 g/dl (3.4-5.0); BLOOD UREA NITROGEN 11.8 mg/dL (7-18); CALCIUM 7.8 mg/dL (8.5-10.1); MAGNESIUM 1.7 mg/dL (1.8-2.4)
[2023-12-14 07:57] LABS: PHOSPHOROUS 2.9 mg/dL (2.5-4.9)
[2023-12-14 08:00] LABS: BILIRUBIN,TOTAL 0.4 mg/dL (0.2-1)
[2023-12-14] MEDS: MAGNESIUM SULF 50% (8.12 MEQ/2 ML-1 GM VIAL) IVPB ONE (09:12)
[2023-12-14] MEDS: CEFUROXIME AXETIL 500 MG TABLET PO SCH (09:13)
[2023-12-14] MEDS: MAGNESIUM OXIDE 400 MG TABLET (FP) PO ONE (10:31)
[2023-12-14] MEDS: MAGNESIUM 2GM/50ML STERILE WATER IVPB IVPB ONE (14:28)
[2023-12-14] MEDS ORDERED: hydrOXYzine HCL 100 MG/2 ML VIAL IM ONE (14:46)
[2023-12-14] MEDS: hydrOXYzine HCL 50 MG/ML VIAL IM ONE (20:42)
[2023-12-15 06:43] LABS: POTASSIUM 5.4 mmol/L (3.5-5.1)
[2023-12-15 06:46] LABS: CALCIUM 8.1 mg/dL (8.5-10.1)
[2023-12-15 06:47] LABS: BLOOD UREA NITROGEN 12.2 mg/dL (7-18); MAGNESIUM 2.1 mg/dL (1.8-2.4)
[2023-12-15 06:50] LABS: PHOSPHOROUS 3.2 mg/dL (2.5-4.9)
[2023-12-15 06:52] LABS: BILIRUBIN,TOTAL 0.5 mg/dL (0.2-1); TOT PROT 6.7 g/dl (6.4-8.2)
[2023-12-15 07:01] LABS: HEMATOCRIT 30.8 % (35.4-49); HEMOGLOBIN 9.8 GM/dL (11.7-16.9); MCH 28.8 pg (25.7-33.7); MCHC 31.7 g/dl (32.0-35.9); MEAN CELL VOLUME 90.9 fl (80-96); MEAN PLT VOLUME 10.4 fl (7.5-11.1); PLATELET COUNT 265 10^3/uL (134-434); RBC 3.39 M/mm3 (4.00-5.60); RDW 14.7 % (11.9-15.9); WHITE BLOOD COUNT 6.5 K/mm3 (4.0-10.0)
[2023-12-15] MEDS: SODIUM ZIRCONIUM CYCLOSILICATE (LOKELMA) 5 GM PACKET PO SCH (10:18)
[2023-12-16 03:11] VITALS: PULSE 71
[2023-12-16 06:08] VITALS: TEMP 98.2
[2023-12-16 07:14] LABS: HEMATOCRIT 28.1 % (35.4-49); HEMOGLOBIN 9.2 GM/dL (11.7-16.9); MCH 29.8 pg (25.7-33.7); MCHC 32.7 g/dl (32.0-35.9); MEAN CELL VOLUME 91.1 fl (80-96); MEAN PLT VOLUME 10.2 fl (7.5-11.1); PLATELET COUNT 259 10^3/uL (134-434); RBC 3.09 M/mm3 (4.00-5.60); RDW 15.1 % (11.9-15.9); WHITE BLOOD COUNT 7.2 K/mm3 (4.0-10.0)
[2023-12-16 07:42] LABS: POTASSIUM 5.3 mmol/L (3.5-5.1)
[2023-12-16 08:06] LABS: ALBUMIN 1.8 g/dl (3.4-5.0); BLOOD UREA NITROGEN 10.1 mg/dL (7-18); CALCIUM 8.3 mg/dL (8.5-10.1)
[2023-12-16 08:08] LABS: PHOSPHOROUS 3.4 mg/dL (2.5-4.9)
[2023-12-16 08:09] LABS: BILIRUBIN,TOTAL 0.5 mg/dL (0.2-1); TOT PROT 6.3 g/dl (6.4-8.2)
[2023-12-16] MEDS: SODIUM ZIRCONIUM CYCLOSILICATE (LOKELMA) 5 GM PACKET PO SCH (10:40)
[2023-12-16 13:59] VITALS: BMI 29.1
[2023-12-16 17:03] VITALS: BP 122/68; RESP 15
== END 2023-12-16 19:45 | disposition home or self-care (01) | DRG 710 ==
LOC: JER 10:45 → JERBED 17:14 → JICU 18:54 → J2W 12-10 08:13
PROVIDERS: ADMIT Internal Medicine Pulmonary Disease; ATTEND Internal Medicine
PROC: 05HN33Z Insertion of Infusion Device into Left Internal Jugular Vein, Percutaneous Approach (ICD-10-PCS; 2023-12-05)
PROC: B544ZZA Ultrasonography of Left Jugular Veins, Guidance (ICD-10-PCS; 2023-12-05)
PROC: 0T7D4ZZ Dilation of Urethra, Percutaneous Endoscopic Approach (ICD-10-PCS; principal; 2023-12-06)
PROC: 0F9930Z Drainage of Common Bile Duct with Drainage Device, Percutaneous Approach (ICD-10-PCS; 2023-12-06)
PROC: BF10YZZ Fluoroscopy of Bile Ducts using Other Contrast (ICD-10-PCS; 2023-12-06)
PROC: 0W9G30Z Drainage of Peritoneal Cavity with Drainage Device, Percutaneous Approach (ICD-10-PCS; 2023-12-06)
PROC: 30233N1 Transfusion of Nonautologous Red Blood Cells into Peripheral Vein, Percutaneous Approach (ICD-10-PCS; 2023-12-08)
DX: A41.50 Gram-negative sepsis, unspecified (principal); K65.1 Peritoneal abscess; R65.21 Severe sepsis with septic shock; N17.9 Acute kidney failure, unspecified; K83.09 Other cholangitis; D62 Acute posthemorrhagic anemia; B00.9 Herpesviral infection, unspecified; I10 Essential (primary) hypertension; R79.89 Other specified abnormal findings of blood chemistry; E87.20 Acidosis, unspecified; D69.6 Thrombocytopenia, unspecified
CPT/HCPCS: 0241U-QW; 36415; 36430; 47532; 49405; 51703; 71045-TC-FY; 71275-TC; 74177-TC; 74182-TC; 76705-TC; 78226-TC; 80048; 80053; 80076; 82248; 82550; 82570; 82803; 83036; 83605; 83735; 84100; 84300; 84484; 85025; 85027; 85610; 85730; 86850; 86900; 86901; 86922; 87040; 87070; 87075; 87186; 87205; 93005; 93010; 93306-TC; 94010; 97116-GP; 97161-GP; 99291; A9537; J0131; J1644; P9058; Q9967

== ENCOUNTER 2024-04-10 12:19 | Emergency (ER) | payer OTHER ==
[2024-04-10 12:33] VITALS: BP 154/80; PULSE 66; RESP 20; TEMP 98.2; BMI 26.4
[2024-04-10 14:24] LABS: INR 0.97 (0.83-1.09); PROTHROMBIN TIME (PATIENT) 11.1 SEC (9.7-13.0)
[2024-04-10 14:27] LABS: ACTIVATED PTT 32.6 SECONDS (25.2-36.5)
[2024-04-10 14:31] LABS: HEMATOCRIT 34.2 % (35.4-49); HEMOGLOBIN 11.1 G/dL (11.7-16.9); MCH 29.7 pg (25.7-33.7); MCHC 32.3 g/dl (32.0-35.9); MEAN CELL VOLUME 91.7 fl (80-96); MEAN PLT VOLUME 9.4 fl (7.5-11.1); PLATELET COUNT 190.9 10^3/uL (134-434); RBC 3.73 10^6/uL (4.00-5.60); RDW 15.6 % (11.9-15.9); WHITE BLOOD COUNT 5.3 10^3/uL (4.0-10.8)
[2024-04-10 14:38] LABS: ALBUMIN 2.5 g/dl (3.4-5.0); BILIRUBIN,TOTAL 0.5 mg/dl (0.2-1); CALCIUM 8.1 mg/dl (8.5-10.1); POTASSIUM 3.8 mmol/L (3.5-5.1)
[2024-04-10 14:43] LABS: PLATELET ESTIMATE ADEQUATE
[2024-04-10 15:09] LABS: N-TERMINAL BNP 796.5 pg/ml (5-125)
== END 2024-04-10 16:18 | disposition home or self-care (01) ==
LOC: FER 12:19
DX: S22.41XA Multiple fractures of ribs, right side, initial encounter for closed fracture (principal); S30.1XXA Contusion of abdominal wall, initial encounter; M79.89 Other specified soft tissue disorders; V09.20XA Pedestrian injured in traffic accident involving unspecified motor vehicles, initial encounter; Y92.410 Unspecified street and highway as the place of occurrence of the external cause
CPT/HCPCS: 36415; 71260-TC; 74177-TC; 80053; 83880; 84484; 85027; 85610; 85730; 86850; 86900; 86901; 99285-25; Q9967